=== PATIENT | male | born 1965 | race Caucasian/White ===

== ENCOUNTER 2018-08-22 11:36 | Inpatient (IN) ==
[2018-08-22] MEDS ORDERED: ZOFRAN IV PRN (14:37)
[2018-08-22] MEDS ORDERED: SEROQUEL PO PRN (14:37)
[2018-08-22] MEDS ORDERED: SALINE LOCK IV FLUID XX ONE (14:37)
[2018-08-22] MEDS ORDERED: NICODERM PATCH TD PRN (14:37)
[2018-08-22] MEDS ORDERED: ATARAX PO PRN (14:37)
[2018-08-22] MEDS ORDERED: PHENOBARBITAL IV PRN (14:37)
[2018-08-22] MEDS ORDERED: DULCOLAX PR PRN (14:37)
[2018-08-22] MEDS ORDERED: BENTYL PO PRN (14:37)
[2018-08-22] MEDS ORDERED: D5W 1,000 ML IV PRN (14:37)
[2018-08-22] MEDS ORDERED: TYLENOL PO PRN (14:37)
[2018-08-22] MEDS ORDERED: MAALOX PLUS LIQUID PO PRN (14:37)
[2018-08-22] MEDS ORDERED: ZOFRAN ODT PO PRN (14:37)
[2018-08-22] MEDS ORDERED: IMODIUM PO PRN (14:37)
[2018-08-22] MEDS ORDERED: MOTRIN PO PRN (14:37)
[2018-08-22] MEDS ORDERED: ROBAXIN PO PRN (14:37)
[2018-08-22] MEDS ORDERED: SENOKOT PO PRN (14:37)
[2018-08-22] MEDS ORDERED: DESYREL PO PRN (14:37)
[2018-08-22 15:35] LABS: HEMATOCRIT 40.6 % (42.0-52.0); HEMOGLOBIN 13.9 g/dL (14.0-18.0); MCH 30.8 PG (27-31); MCHC 34.2 g/dL (33-37); MCV 89.8 FL (81-99); MPV 10.4 FL (7.4-10.4); RBC 4.52 XMIL (4.7-6.1); RDW 13.6 % (11.5-14.5); WBC 8.91 X1000 (4.8-10.8)
[2018-08-22 15:51] LABS: AGAP 12; ALBUMIN 3.9 g/dL (3.5-5.0); ALKALINE PHOSPHATASE 75 U/L (32-122); BUN 11 mg/dL (8-22); CALCIUM 8.9 mg/dL (8.8-10.2); CHLORIDE 98 mmol/L (98-107); COSMO 278; CREATININE 0.6 mg/dL (0.7-1.2); ESTIMATED GFR > 60; GLUCOSE 179 mg/dL (70-104); GOT 14 U/L (10-34); GPT 25 U/L (10-44); POTASSIUM 3.5 mmol/L (3.5-5.1); SODIUM 137 mmol/L (136-145); TCO2 27 mmol/L (25-35); TOTAL PROTEIN 6.5 g/dL (6.3-8.3)
[2018-08-22 15:58] LABS: INR 0.96; PROTIME 13.3 Seconds (11.0-16.0)
[2018-08-22 16:07] LABS: AMYLASE 60 U/L (20-200); LIPASE 60 U/L (13-60)
[2018-08-22] MEDS ORDERED: M.V.I.-12 10 ML, FOLIC ACID 1 MG, MAGNESIUM SULFATE 1 GM, THIAMINE 100 MG in NS 1,000 ML IV ONE (17:00)
[2018-08-22] MEDS ORDERED: TUBERSOL ID ONE (17:00)
[2018-08-22] MEDS: LIBRIUM PO SCH (17:43)
[2018-08-22 19:10] LABS: URINE SOURCE VOIDED
[2018-08-22 19:18] LABS: BILIRUBIN URINE NEGATIVE (NEGATIVE); BLOOD URINE NEGATIVE (NEGATIVE); CLARITY CLEAR (CLEAR); COLOR YELLOW; GLUCOSE URINE NEGATIVE (NEGATIVE); KETONE URINE NEGATIVE (NEGATIVE); LEUKOCYTES URINE NEGATIVE (NEGATIVE); NITRITE URINE NEGATIVE (NEGATIVE); PROTEIN URINE NEGATIVE (NEGATIVE); UROBILINOGEN URINE NORMAL
[2018-08-22 19:26] LABS: UR AMPHETAMINES QUAL NONE DETECTED (NONE DETECT); UR BARBITUATES QUAL NONE DETECTED (NONE DETECT); UR BENZODIAZEPIN QUAL NONE DETECTED (NONE DETECT); UR CANNABINOIDS QUAL PRESUMPTIVE POSITIVE (NONE DETECT); UR COCAINE QUAL NONE DETECTED (NONE DETECT); UR METHADONE QUAL NONE DETECTED (NONE DETECT); UR METHAMPHETAMINE QUAL NONE DETECTED (NONE DETECT); UR OPIATES QUAL NONE DETECTED (NONE DETECT); UR OXYCODONE QUAL NONE DETECTED (NONE DETECT); UR PCP QUAL NONE DETECTED (NONE DETECT); UR PROPOXYPHENE QUAL NONE DETECTED (NONE DETECT); UR TCA QUAL NONE DETECTED (NONE DETECT)
--- NOTE | 2018-08-22 23:11 | HISTORY AND PHYSICAL ---
CHIEF COMPLAINT: Nausea and vomiting. HISTORY OF PRESENT ILLNESS: The patient is a 53-year-old male who presented to [facility] secondary to nausea, vomiting, abdominal pain, myalgias and tremors. He notes that he has been drinking alcohol, it is however starting to cause lots of social and work place problems. He notes he has always had issues with anxiety, but over the last year or two his alcohol intake has continued to worsen. He also notes that his son-in-law has been abusing meth. He has been late for conference calls. He got a DUI after a seminar. SOCIAL HISTORY: The patient is . He is employed. He lives at home in [place]. PAST MEDICAL HISTORY: Hypertension, high cholesterol, he is prediabetic, chronic anxiety, depression. He has had a 10-12 pounds weight loss over the past several months. Chronic insomnia. MEDICATIONS: Paxil 40, Crestor 20 at bedtime, metformin 500, amlodipine 5, Hyzaar 100/12.5. ALLERGIES: No known drug allergies. REVIEW OF SYSTEMS: CIWA score is 13 secondary to nausea, vomiting, abdominal pain, frequent paroxysmal sweating, changes in temperature, tremors, myalgias, easily agitated. He has been tearful, anxious and nervous. He has not been sleeping well. He has had a decreased appetite. He has had weight loss. He has had a history of syncope and blackouts due to alcoholism. Denies any chest pain or palpitations. Denies any fevers or chills. Denies any dysuria, frequency, urgency, hesitancy, polyuria or polydipsia. No skin rashes, weight loss or weight gain. SUBSTANCE ABUSE HISTORY: The patient notes he has never been in treatment facility in the past. He started drinking at age 15, he currently is drinking [employer] and up to a half a case a night. He tried marijuana in his 20s. He has recently been smoking every night. He started smoking in his 20s. He currently smokes a pack and a half a day. FAMILY HISTORY: Noncontributory. He does have a family history in his stepson of drug abuse. PHYSICAL EXAMINATION: VITAL SIGNS: Reviewed and stable. GENERAL: The patient is awake and alert. He is in no current respiratory distress. He is pleasant to talk with. HEENT: Normocephalic, atraumatic. PAM. NECK: Supple. No JVD. CARDIOVASCULAR: Regular rate. No murmurs. CHEST: Clear. ABDOMEN: Soft, nondistended. EXTREMITIES: Moves all extremities. NEUROLOGIC: No focal changes. SKIN: Warm and dry. No rashes. ASSESSMENT: 1. Nausea and vomiting. 2. Abdominal pain. 3. Myalgias. 4. Paresthesias. 5. Paroxysmal sweating. 6. Tremors. 7. Chronic anxiety and depression. 8. Hypertension. 9. Alcohol abuse withdrawal and stabilization. PLAN: We will admit the patient to the hospital and begin counseling. cc: Aidan Ibarra MD
[2018-08-23] MEDS: LIBRIUM PO SCH ×5 (00:02→23:57)
[2018-08-23] MEDS: PROTONIX PO SCH ×2 (05:43→06:23)
[2018-08-23] MEDS: HYDROCHLOROTHIAZIDE PO SCH (09:48)
[2018-08-23] MEDS: VITAMIN B-1 PO SCH (09:48)
[2018-08-23] MEDS: FOLIC ACID PO SCH (09:48)
[2018-08-23] MEDS: THERA M PLUS PO SCH (09:48)
[2018-08-23] MEDS: PAXIL PO SCH (09:48)
[2018-08-23] MEDS: GLUCOPHAGE PO SCH (09:48)
[2018-08-23] MEDS: COZAAR PO SCH (09:49)
--- NOTE | 2018-08-24 | PROGRESS NOTE ---
DATE: 08/23/2018 SUBJECTIVE: Patient notes that overall he is feeling a little bit better. Still having some tremors, did not sleep well. Still having some nausea and some muscle aches but overall symptoms have improved. OBJECTIVE: Vital signs reviewed. Temperature 97.5 degrees, pulse 70, respiratory 18, BP 105/60.General: Patient is very pleasant to talk with. He appears to be improving. HEENT: Normocephalic. Neck: Supple. CV: Regular rate, no murmurs. Chest: Clear, nonlabored. Abdomen: Soft. Extremities: Moves all extremities. Neuro: No changes. ASSESSMENT: 1. Nausea, vomiting. 2. Abdominal pain . 3. Myalgias. 4. Paresthesias. 5. Paroxysmal sweating. 6. Alcohol abuse withdrawal and stabilization. PLAN: Continue patient in the hospital, continue stabilization with Librium. Discussed with him again MAT treatment with naltrexone on discharge. cc: Aidan Ibarra MD
[2018-08-24] MEDS: PROTONIX PO SCH ×2 (06:07→06:21)
[2018-08-24] MEDS: LIBRIUM PO SCH ×3 (06:20→17:19)
[2018-08-24] MEDS: PAXIL PO SCH (08:23)
[2018-08-24] MEDS: COZAAR PO SCH (08:23)
[2018-08-24] MEDS: FOLIC ACID PO SCH (08:23)
[2018-08-24] MEDS: GLUCOPHAGE PO SCH (08:24)
[2018-08-24] MEDS: HYDROCHLOROTHIAZIDE PO SCH (08:24)
[2018-08-24] MEDS: VITAMIN B-1 PO SCH (08:24)
[2018-08-24] MEDS: THERA M PLUS PO SCH (08:24)
--- NOTE | 2018-08-24 22:46 | PROGRESS NOTE ---
DATE: 08/24/2018 SUBJECTIVE: Patient notes that his withdrawal symptoms have improved. He is starting to feel better. He is still having some myalgias and tremors, but these are both improving. Still having occasional nausea. OBJECTIVE: Vital Signs: Temperature 97.5 degrees, pulse 74, respiratory rate 18, BP 115/67. General: Patient is a very pleasant to talk with male who is in no current respiratory distress. HEENT: Normocephalic. Neck: Supple. Cardiovascular: Regular rate. No murmurs. Chest: Clear, nonlabored. Abdomen: Soft. Extremities: Moves all extremities. ASSESSMENT: 1. Nausea and vomiting. 2. Abdominal pain. 3. Myalgias. 4. Paresthesias. 5. Tremors. 6. Alcohol abuse withdrawal and stabilization. 7. Hypertension. 8. High cholesterol. PLAN: We will continue patient in the hospital. Continue treatment. Continue to wean Librium. Continue counseling. We will start naltrexone in the a.m. and hopefully discharge home tomorrow if his withdrawal symptoms allow it. cc: Aidan Ibarra MD
[2018-08-25] MEDS: LIBRIUM PO SCH ×4 (00:14→16:49)
[2018-08-25] MEDS: THERA M PLUS PO SCH (08:30)
[2018-08-25] MEDS: GLUCOPHAGE PO SCH (08:30)
[2018-08-25] MEDS: FOLIC ACID PO SCH (08:31)
[2018-08-25] MEDS: HYDROCHLOROTHIAZIDE PO SCH (08:31)
[2018-08-25] MEDS: PAXIL PO SCH (08:31)
[2018-08-25] MEDS: VITAMIN B-1 PO SCH (08:32)
[2018-08-25] MEDS: COZAAR PO SCH (08:32)
[2018-08-25] MEDS ORDERED: REVIA PO SCH (09:00)
[2018-08-25 11:33] VITALS: BP 131/85
== END 2018-08-25 19:35 | disposition home or self-care (01) | DRG 897 ==
LOC: P.DIRADM 12:20 → P.MEDSURG 13:27
PROVIDERS: ADMIT Family Medicine; ATTEND Family Medicine
CPT/HCPCS: 80053; 80104; 80301; 80305; 80307; 80320; 82055; 82150; 83690; 85027; 85610; 86580; A9270; G0431; G0434; G0477; G0480; G6040; J3411; J3475; J7030